=== PATIENT | male | born 1970 | race Caucasian/White ===

== ENCOUNTER → 2020-07-09 | Outpatient (CLI) | payer MEDICARE, MEDICAID ==
[~2020-07-09] MED LIST: ADV500INH INH; AMLO1TAB24 PO; ASPI81TA86 PO; BACL10TA2 PO; CLAR10CA3 PO; FENO135C6 PO; FLON0.054; LANTINJ4 SC; LISI10TA4 PO; METF750T36 PO; NEUR800T PO; NOVOINJ3 SC; OMEP40CA97 PO; PAME50CA PO; PERC7.5T11 PO; PROAAER10 INH; RANI-397 PO; SERT-141 PO; TIOT18INH INH; TYLE325T5 PO
--- NOTE | 2020-07-15 19:15 | SLEEPCENT ---
DATE: 07/09/2020 ORDERED BY: Tung Pereyra Nocturnal polysomnography was performed for evaluation of sleep physiology in this patient with a prior history of obstructive sleep apnea, tested in year 2014. There was 6 hours and 51 minutes of data were reviewed. There was 329 minutes of sleep identified. Sleep latency was normal at 14.5 minutes. REM latency was short at 53 minutes. Sleep architecture showed fragmentation. Sleep progression was maintained. There were three to four REM cycles noted. Overall sleep efficiency is 81.2%. The electrocardiogram shows a sinus rhythm with an average heart rate of 70 beats per minute. EEG shows reasonably normal waveforms for wake and sleep. There were 94 respiratory events identified of 10 seconds in duration or greater for an apnea-hypopnea index of 17.1. The events were primarily obstructive, not exclusive to sleep stage nor body posture. Arousals from respiratory events occurred 10.4 times per hour. Oxygen desaturations were seen below 90%. There was also some limb activity, two trains of 30 events. Limb movement arousal index is 8.4. IMPRESSION: Obstructive sleep apnea syndrome (G47.33). Apnea-hypopnea index 17.1. RECOMMENDATION: The patient should be encouraged to return to the sleep disorder center for pressure therapy. In the interim, alcohol and sedative avoidance should be practiced and caution exercised during the operation of motor vehicles. MTDD
== END ==
LOC: M SLEEP 20:00
PROVIDERS: ATTEND Physician Assistant
DX: G47.33 Obstructive sleep apnea (adult) (pediatric) (principal)

== ENCOUNTER → 2020-07-30 | Outpatient (CLI) | payer MEDICARE, MEDICAID ==
--- NOTE | 2020-08-02 09:06 | SLEEPCENT ---
DATE: 07/30/2020 ORDERED BY: Tung Pereyra Nocturnal polysomnography was performed for the titration of pressure therapy in this patient with a history of obstructive sleep apnea syndrome, apnea-hypopnea index of 17. For testing, the patient was fit with a ResMed AirFit F20 full-face mask of medium size. There was 4 cm of water pressure applied to the circuit, and the lights were extinguished. There was 6 hours and 38 minutes of data reviewed. There was 312.5 minutes of sleep identified. Sleep latency was prolonged at 32.5 minutes. REM latency was short at 39 minutes. Sleep architecture was good with four REM cycles noted. Overall sleep efficiency was 79.4%. The electrocardiogram showed a sinus rhythm with an average heart rate of 62 beats per minute. Rate ranged 44-82. EEG showed normal waveforms for wake and sleep. Respiratory events were fully palliated with CPAP at a pressure of +8. Some persistent limb activity was seen. The limb movement arousal index on this study was 30. IMPRESSION: Obstructive sleep apnea syndrome (G47.33). RECOMMENDATION: Nightly use of pressure therapy, 8 cm of water. MTDD
== END ==
LOC: M SLEEP 20:00
PROVIDERS: ATTEND Physician Assistant
DX: G47.33 Obstructive sleep apnea (adult) (pediatric) (principal)

== ENCOUNTER → 2021-07-17 | Outpatient (CLI) | payer MEDICARE, MEDICAID ==
[~2021-07-17] MED LIST changes: +LISI10TA22 PO; -LISI10TA4 PO; +OMEP40CA4 PO; -OMEP40CA97 PO
--- NOTE | 2021-07-17 09:58 | REP ---
INDICATION: F17.218 NICOTINE DEPEND COMPARISON: 09/15/2017 TECHNIQUE: Axial noncontrast images from the thoracic inlet to the upper abdomen using low-dose lung screening technique (LDCT). FINDINGS: Advanced COPD/emphysematous changes with minimal scattered scarring. Stable chronic nodule in the left upper lobe identified. No consolidation. No effusion. No pneumothorax. Few scattered noncalcified pulmonary nodules represent new findings as compared to prior examination including 5 mm perifissural right middle lobe nodule (series 201; image 65) and 5 mm subpleural nodule along the posteromedial left lower lobe (series 201; image 64). IMPRESSION: Lung-RADS category 3. Few new pulmonary nodules measuring approximately 5 mm. Management recommendations include 6 month follow-up examination. <Electronically signed by Mario Beck > 07/17/21 0948
== END ==
LOC: M RAD 06:59
PROVIDERS: ATTEND Physician Assistant
DX: F17.210 Nicotine dependence, cigarettes, uncomplicated (principal); Z12.2 Encounter for screening for malignant neoplasm of respiratory organs